=== PATIENT | female | born 1980 | race Caucasian/White ===

== ENCOUNTER 2021-06-16 17:06 | Emergency (ER) | payer SELFPAY ==
[~2021-06-16] VITALS: Ht 154.9 cm; Wt 89.4 kg
[2021-06-16 17:36] LABS: BILIRUBIN Negative (Negative); BLOOD 3+ (Negative); CLARITY Cloudy (Clear); COLOR Yellow (Yellow); GLUCOSE Negative (Negative); KETONE Trace (Negative); LEUKO ESTERASE Negative (Negative); NITRITE Negative (Negative); PH 5.5 (4.5-8.0); SPECIFIC GRAVITY 1.015 (1.001-1.030); UROBILINOGEN 0.2 E.U./dl (0.0-1.0)
[2021-06-16 17:48] LABS: BACTERIA 2+; HYALINE CAST 0-2
[2021-06-16 18:32] LABS: BASO # 0.1 10*3/uL (0.0-0.1); BASO % 0.6 % (0.0-1.0); EOS # 0.1 10*3/uL (0.0-0.4); EOS % 1.4 % (1.0-4.0); HEMATOCRIT 41.8 % (37.0-47.0); LYMPH # 1.2 10*3/uL (1.3-4.4); LYMPH % 14.5 % (27.0-41.0); MEAN CELL VOLUME 92.7 fl (81.0-99.0); MEAN CORPUSCULAR HGB 31.9 pg (27.0-31.0); MEAN CORPUSCULAR HGB CONC 34.4 g/dl (33.0-37.0); MEAN PLATELET VOLUME 10.8 fl (9.6-12.3); MONO # 0.4 10*3/uL (0.1-1.0); MONO % 5.2 % (3.0-9.0); NEUT # 6.6 10*3/uL (2.3-7.9); NEUT % 77.7 % (47.0-73.0); PLATELET COUNT AUTOMATED 216 10*3/uL (130-400); RED BLOOD COUNT 4.51 10*6/uL (4.10-5.10); RED CELL DISTRI WIDTH 12.2 % (0-14.5); WHITE BLOOD COUNT 8.5 10*3/uL (4.8-10.8)
[2021-06-16 18:48] LABS: ALBUMIN 3.3 gm/dl (3.1-4.5); ALKALINE PHOSPHATASE 54 U/L (45-117); BUN 8 mg/dl (7-24); CHLORIDE 107 mmol/L (98-107); CREATININE 0.82 mg/dL (0.55-1.02); POTASSIUM 3.9 mmol/L (3.5-5.1); SGOT/AST 10 IU/L (3-35); SGPT/ALT 23 U/L (12-78); SODIUM 138 mmol/L (136-145); TOTAL PROTEIN 6.9 gm/dL (6.4-8.2)
[2021-06-16] MEDS ORDERED: MACROBID100 M1 PO (20:29)
== END 2021-06-16 20:29 ==
LOC: ED 17:06
PROVIDERS: Emergency Medicine; Physician Assistant
DX: O46.91 Antepartum hemorrhage, unspecified, first trimester (principal); Z3A.01 Less than 8 weeks gestation of pregnancy; Z88.1 Allergy status to other antibiotic agents

== ENCOUNTER 2021-07-05 12:41 | Emergency (ER) | payer MEDICAID ==
[~2021-07-05] VITALS: Ht 154.9 cm; Wt 87.1 kg
[~2021-07-05 12:41] MED LIST: MACROBID100 M1 PO
[2021-07-05 13:07] LABS: BASO % 0.4 % (0.0-1.0); EOS # 0.1 10*3/uL (0.0-0.4); HEMATOCRIT 40.6 % (37.0-47.0); LYMPH # 1.1 10*3/uL (1.3-4.4); LYMPH % 13.8 % (27.0-41.0); MEAN CELL VOLUME 93.5 fl (81.0-99.0); MEAN CORPUSCULAR HGB 31.6 pg (27.0-31.0); MEAN CORPUSCULAR HGB CONC 33.7 g/dl (33.0-37.0); MEAN PLATELET VOLUME 10.6 fl (9.6-12.3); MONO # 0.4 10*3/uL (0.1-1.0); MONO % 4.9 % (3.0-9.0); NEUT # 6.1 10*3/uL (2.3-7.9); NEUT % 79.3 % (47.0-73.0); PLATELET COUNT AUTOMATED 250 10*3/uL (130-400); RED BLOOD COUNT 4.34 10*6/uL (4.10-5.10); WHITE BLOOD COUNT 7.7 10*3/uL (4.8-10.8)
[2021-07-05 13:24] LABS: BUN 7 mg/dl (7-24); CHLORIDE 106 mmol/L (98-107); CREATININE 0.81 mg/dL (0.55-1.02); POTASSIUM 4.2 mmol/L (3.5-5.1); SODIUM 137 mmol/L (136-145)
[2021-07-05 13:48] LABS: BILIRUBIN Negative (Negative); BLOOD 3+ (Negative); CLARITY Cloudy (Clear); COLOR Yellow (Yellow); GLUCOSE Negative (Negative); KETONE Negative (Negative); LEUKO ESTERASE Trace (Negative); NITRITE Negative (Negative)
[2021-07-05 13:56] LABS: PH >= 9.0 (4.5-8.0)
[2021-07-05 14:24] LABS: EPITHELIAL CELLS 21-30
[2021-07-05 14:25] LABS: BACTERIA 2+
== END 2021-07-05 15:36 | disposition left against medical advice (07) ==
LOC: ED 12:41
PROVIDERS: Emergency Medicine
DX: O46.91 Antepartum hemorrhage, unspecified, first trimester (principal); Z3A.08 8 weeks gestation of pregnancy; Z88.1 Allergy status to other antibiotic agents

== ENCOUNTER → 2021-08-24 | Outpatient (CLI) | payer OTHER | END | disposition home or self-care (01) | LOC: COVID19 15:41 | PROVIDERS: ATTEND Internal Medicine | DX: Z11.52 Encounter for screening for COVID-19 (principal) ==

== ENCOUNTER 2024-11-13 09:53 | Emergency (ER) | payer OTHER ==
[~2024-11-13] VITALS: Ht 154.9 cm; Wt 128.0 kg
[2024-11-13] MEDS ORDERED: Acetaminophen/Oxycodone 5 MG/325 MG TABLET PO ONE (10:20)
[2024-11-13] MEDS ORDERED: Amoxicillin/Clavulanate Pota 875 MG TAB PO ONE (10:25)
[2024-11-13] MEDS ORDERED: AMOX-CLAV 875-1 EACH PO (10:39)
[2024-11-13] MEDS ORDERED: MELOXICAM15 MG PO (10:39)
== END 2024-11-13 10:46 | disposition home or self-care (01) ==
LOC: ED 09:53
DX: K04.7 Periapical abscess without sinus (principal); K02.9 Dental caries, unspecified; J40 Bronchitis, not specified as acute or chronic

== ENCOUNTER 2025-01-12 13:01 | Emergency (ER) | payer OTHER ==
[~2025-01-12] VITALS: Ht 154.9 cm; Wt 127.0 kg
[~2025-01-12 13:01] MED LIST changes: +AMOX-CLAV 875-1 EACH PO; +MELOXICAM15 MG PO
[2025-01-12] MEDS ORDERED: MEDROL DOSEPAK4 MG PO (14:25)
== END 2025-01-12 14:25 | disposition home or self-care (01) ==
LOC: ED 13:01
DX: J40 Bronchitis, not specified as acute or chronic (principal); Z79.899 Other long term (current) drug therapy; Z88.1 Allergy status to other antibiotic agents

== ENCOUNTER 2025-05-03 18:50 | Emergency (ER) | payer OTHER ==
[~2025-05-03] VITALS: Ht 154.9 cm; Wt 127.0 kg
[~2025-05-03 18:50] MED LIST changes: +MEDROL DOSEPAK4 MG PO
[2025-05-03] MEDS ORDERED: METHOCARBAMOL 750 MG TAB PO ONE (21:00)
[2025-05-03] MEDS ORDERED: NAPROSYN500 MG PO (21:02)
[2025-05-03] MEDS ORDERED: METHOCARBAMOL750 M1 PO (21:02)
== END 2025-05-03 21:15 | disposition home or self-care (01) ==
LOC: ED 18:50
DX: S20.211A Contusion of right front wall of thorax, initial encounter (principal); M79.661 Pain in right lower leg; W22.8XXA Striking against or struck by other objects, initial encounter; Y93.89 Activity, other specified; Y92.89 Other specified places as the place of occurrence of the external cause; Y99.8 Other external cause status

== ENCOUNTER 2025-09-02 23:48 | Emergency (ER) | payer OTHER ==
[~2025-09-02] VITALS: Ht 154.9 cm; Wt 136.1 kg
[~2025-09-02 23:48] MED LIST changes: +METHOCARBAMOL750 M1 PO; +NAPROSYN500 MG PO
[2025-09-03 00:46] LABS: BASO # 0.1 10*3/uL (0.0-0.1); BASO % 0.9 % (0.0-1.0); EOS # 0.3 10*3/uL (0.0-0.4); EOS % 3.1 % (1.0-4.0); MEAN CELL VOLUME 95.3 fl (81.0-99.0); MEAN CORPUSCULAR HGB 32.0 pg (27.0-31.0); MEAN PLATELET VOLUME 10.6 fl (9.6-12.3); MONO # 0.4 10*3/uL (0.1-1.0); MONO % 4.9 % (3.0-9.0); NEUT # 5.9 10*3/uL (2.3-7.9); NEUT % 73.3 % (47.0-73.0); NUCLEATED RED BLOOD CELL 0.0 % (0.0-0.0); NUCLEATED RED BLOOD CELL 0.0 10*3/uL (0.0-0.0); PLATELET COUNT AUTOMATED 137 10*3/uL (130-400); RED CELL DISTRI WIDTH 12.5 % (0-14.5)
[2025-09-03 00:54] LABS: ACT PARTIAL THROMBO TIME 28.7 SECONDS (20.0-32.1)
[2025-09-03 01:11] LABS: BETA-HCG, QUANT < 3.0 mIU/mL (3-10); BUN 9 mg/dl (9-23)
[2025-09-03] MEDS ORDERED: VIBRA-TAB100 MG PO (01:31)
== END 2025-09-03 01:39 | disposition home or self-care (01) ==
LOC: ED 23:48
PROVIDERS: Emergency Medicine
DX: J20.9 Acute bronchitis, unspecified (principal); E11.9 Type 2 diabetes mellitus without complications; J45.909 Unspecified asthma, uncomplicated; Z88.8 Allergy status to other drugs, medicaments and biological substances; Z20.822 Contact with and (suspected) exposure to COVID-19